=== PATIENT | male | born 1935 | race Caucasian/White ===

== ENCOUNTER 2016-06-15 23:24 | Emergency (ER) | payer MEDICARE, OTHER ==
[2016-06-16 04:19] LABS: ABSOLUTE BASOPHILS # (AUTO) 0.1 10^3/uL (0.0-0.2); ABSOLUTE EOSINOPHILS # (AUTO) 0.1 10^3/uL (0.0-0.6); ABSOLUTE LYMPHOCYTES (AUTO) 0.8 10^3/uL (0.5-4.7); ABSOLUTE MONOCYTES (AUTO) 0.6 10^3/uL (0.1-1.4); ABSOLUTE NEUT (AUTO) 6.4 10^3/uL (1.7-8.2); BASOPHILS % (AUTO) 0.7 % (0-2); EOSINOPHILS % (AUTO) 1.1 % (0-6); HEMATOCRIT 47.2 % (37.9-51.0); HEMOGLOBIN 16.1 g/dL (13.5-17.0); HGB HCT DIFFERENCE 1.1; LYMPHOCYTES % (AUTO) 9.8 % (13-45); MEAN CORPUSCULAR HEMOGLOBIN 32.1 pg (27.0-33.4); MEAN CORPUSCULAR VOLUME 94 fl (80-97); RED CELL DISTRIBUTION WIDTH 13.6 % (11.5-14.0); SEGMENTED NEUTROPHILS % (AUTO) 80.4 % (42-78)
[2016-06-16 04:27] LABS: PROTHROMBIN TIME 14.2 SEC (11.4-15.4)
[2016-06-16 04:28] LABS: PARTIAL THROMBOPLASTIN TIME 30.3 SEC (23.5-35.8)
--- NOTE | 2016-06-16 05:44 | ER Document Report ---
HPI - HPI Patient complains to provider of: bleeding gums Onset: Just prior to arrival Onset/Duration: Sudden Quality of pain: No pain Pain Level: Denies Context: Patient presents to the emergency department with complaints of bleeding gums. Patient reports that he had a tooth extracted yesterday at 11:00. He reports he took his eliquis at 1800 last night and the area started bleeding. He reports he only ate oats, he denies trauma. He denies other symptoms such as fever vomiting diarrhea. He reports he does not smoke. He denies feeling weak or dizzy. Associated Symptoms: None Exacerbated by: Denies Relieved by: Denies Similar symptoms previously: No Recently seen / treated by doctor: Yes - dentist - REPRODUCTIVE Reproductive: DENIES: : - DERM Skin Color: Normal Past Medical History - General Information source: Patient - Social History Smoking Status: Former Smoker Cigarette use (# per day): No Frequency of alcohol use: Occasional Drug Abuse: None Lives with: Family Family History: None Patient has suicidal ideation: No Patient has homicidal ideation: No - Past Medical History Cardiac Medical History: Reports: Hx Atrial Fibrillation, Hx Coronary Artery Disease - high chol , Hx Hypercholesterolemia, Hx Hypertension Denies: Hx Congestive Heart Failure, Hx Heart Attack, Hx Heart Murmur Pulmonary Medical History: Denies: Hx Asthma, Hx Bronchitis, Hx COPD, Hx Pneumonia Neurological Medical History: Denies: Hx Cerebrovascular Accident, Hx Seizures Renal/ Medical History: Denies: Hx Peritoneal Dialysis GI Medical History: Denies: Hx Hepatitis, Hx Hiatal Hernia, Hx Ulcer Musculoskeltal Medical History: Reports Hx Arthritis, Denies Hx Muscle Weakness Infectious Medical History: Denies: Hx Hepatitis Past Surgical History: Reports: Hx Bowel Surgery - bowel resection, Hx Orthopedic Surgery - right foot bone spurs. Denies: Hx Open Heart Surgery, Hx Pacemaker - Immunizations Hx Diphtheria, Pertussis, Tetanus Vaccination: Yes Vertical Provider Document - CONSTITUTIONAL Agree With Documented VS: Yes Exam Limitations: No Limitations General Appearance: WD/WN, No Apparent Distress - INFECTION CONTROL TRAVEL OUTSIDE OF THE [place] IN LAST 30 DAYS: No - HEENT HEENT: Atraumatic, Normocephalic Mouth Diagram: 1 - clot noted - NECK Neck: Normal Inspection, Supple - RESPIRATORY Respiratory: Breath Sounds Normal, No Respiratory Distress O2 Sat by Pulse Oximetry: 97 - CARDIOVASCULAR Cardiovascular: Regular Rate - MUSCULOSKELETAL/EXTREMETIES Musculoskeletal/Extremeties: MAEW, FROM - NEURO Level of Consciousness: Awake, Alert, Appropriate Motor/Sensory: No Motor Deficit - DERM Integumentary: Warm, Dry Course - Re-evaluation Re-evalutation: 06/16/16 07:05 bleeding has slowed, patient instructed to continue to hold pressure and fu with dental now for recheck. - Vital Signs Vital signs: Temp Pulse Resp BP Pulse Ox 56 L 18 164/69 H 97 06/15/16 23:33 06/15/16 23:33 06/15/16 23:33 06/15/16 23:33 - Laboratory Result Diagrams: 06/16/16 04:03 Laboratory results interpreted by me: 06/16/16 04:03 Plt Count 137 L Seg Neutrophils % 80.4 H Lymphocytes % 9.8 L Discharge - Discharge Clinical Impression: bleeding from tooth extraction Condition: Stable Disposition: HOME, SELF-CARE Additional Instructions: *You have been evaluated for bleeding from recent tooth extraction site *Eat soft foods only *Follow up with your dentist this am. *Return to ED for worsening condition, changes, needs Referrals: CATHI BRUNER MD [Primary Care Provider] - Follow up as needed
[2016-06-16 07:39] VITALS: BP 129/94
== END 2016-06-16 07:42 | disposition home or self-care (01) ==
LOC: ER 23:24
DX: K91.840 Postprocedural hemorrhage of a digestive system organ or structure following a digestive system procedure (principal); Y83.6 Removal of other organ (partial) (total) as the cause of abnormal reaction of the patient, or of later complication, without mention of misadventure at the time of the procedure; I48.91 Unspecified atrial fibrillation; I25.10 Atherosclerotic heart disease of native coronary artery without angina pectoris; I10 Essential (primary) hypertension; Z79.01 Long term (current) use of anticoagulants; Z87.891 Personal history of nicotine dependence
CPT/HCPCS: 36415; 85025; 85610; 85730; 99283

== ENCOUNTER 2018-04-21 06:42 | Day surgery (SDC) | payer MEDICARE, OTHER ==
[~2018-04-21 06:42] MED LIST: KETOROLAC TROMETHAMINE 0.45% 4 DROP/0.4 ML DROPERETTE OD PRN
[2018-04-21] MEDS: BESIFLOXACIN HCL 0.6% OPH SUSP 5 ML BOTTLE OD PRN ×4 (07:02→08:19)
[2018-04-21] MEDS: TROPICAMIDE 1% OPH SOLN 3 ML OD PRN ×3 (07:02→07:25)
[2018-04-21] MEDS: TETRACAINE HCL 0.5% OPH SOLN 4 ML OD PRN ×3 (07:02→07:49)
[2018-04-21] MEDS: CYCLOPENTOLATE 0.2%/PHENYLEPHRINE 1% OPH SOLN 2 ML OD PRN ×3 (07:02→07:25)
[2018-04-21] MEDS ORDERED: LIDOCAINE 1% INJ-PF (10 MG/ML) 30 ML SDV ONE (07:21)
[2018-04-21] MEDS ORDERED: EPINEPHRINE INJ/PF 1 MG/1 ML AMPULE ONE (07:21)
[2018-04-21] MEDS ORDERED: CHONDR SU A NA/HYALUR INTRAOC KIT (SURGICARE) ONE (07:21)
[2018-04-21] MEDS ORDERED: LIDOCAINE 1%/PHENYLEPHRINE 1.5% 1 ML VIAL ONE (07:37)
[2018-04-21] MEDS ORDERED: MIDAZOLAM 2 MG/2 ML INJ ONE ×2 (07:40→07:53)
[2018-04-21] MEDS ORDERED: FENTANYL CITRATE INJ/PF 100 MCG/2 ML AMPUL ONE (07:40)
--- NOTE | 2018-04-22 01:33 | [facility] DISCHARGE SUMMARY E ---
[facility] Discharge Summary NAME: TESS JOHNSON AGE: 82Y ADMITTED: 04/21/2018 DISCHARGED: 04/21/2018 HOSPITAL COURSE: This is an 82-year-old male who underwent cataract extraction complex of the right eye with use of a Malyugin ring. DIAGNOSIS: 1. CATARACT, RIGHT EYE. 2. PUPIL MIOSIS REQUIRING A MALYUGIN RING DILATING LESS THAN 4 MM. He underwent surgery because he was having difficulty seeing the golf ball as well as headlights at night causing it difficult to drive. DISCHARGE INSTRUCTIONS: He should be on a regular diet. No bending at the waist, no heavy lifting. He should use PROLENSA, Besivance, and Durezol at 3 p.m. and 8 p.m. and sleep with a rigid shield. I will see him for his 1 day postoperative tomorrow. DICTATING PHYSICIAN: GRAHAM NICOLE M.D. [id number] PHY#: [id number] ID: [id number] JOB#: [id number] ACCT: [id number] cc:GRAHAM NICOLE M.D. >
--- NOTE | 2018-04-22 01:33 | [facility] OPERATIVE REPORT E ---
[facility] Operative Report NAME: TESS JOHNSON AGE: 82Y DATE OF SURGERY: 04/21/2018 ROOM: PREOPERATIVE DIAGNOSES: 1. CATARACT RIGHT EYE. 2. PUPIL MIOSIS, RIGHT EYE. POSTOPERATIVE DIAGNOSES: 1. CATARACT RIGHT EYE. 2. PUPIL MIOSIS, RIGHT EYE. OPERATION: Complex cataract extraction with the use of a Malyugin ring due to pupillary miosis where the pupil measured to be less than 4 mm. SURGEON: GRAHAM NICOLE M.D. ANESTHESIA: TOPICAL. COMPLICATIONS: None. ESTIMATED BLOOD LOSS: None. PROCEDURE: After obtaining appropriate consent, the patient right eye was prepped and draped in sterile fashion as well as the surgeon in a sterile manner, and the cataract surgery was started. First, the paracentesis blade was used to make a small side-port incision. Viscoelastic was used to inflate the anterior chamber. Next a 2.4 mm incision was made using a 2.4 mm keratome. At this point, the pupil was less than 4.5 mm and was very miotic. In order to complete the capsulorhexis, a Malyugin ring was inserted and found to be in excellent position to help stabilize the pupil. Following this, a continuous capsulorhexis was made using a cystitome and Utrata forceps. Following this, hydrodissection was carried out to make the lens fully loose and mobile, and it was rotated 90 degrees. Following this, a divide and conquer technique was used to phacoemulsify the lens with a CDE of approximately 11.05. The remaining cortex was removed with irrigation/aspiration. Provisc was instilled into the capsular bag to inflate the bag. A SN60WF lens of 15.5 diopters was placed. The remaining viscoelastic material was removed with irrigation/aspiration. After this the Malyugin ring was removed. Following this, the incision was found to be watertight. Besivance was instilled into the eye and a protective shield was placed over the eye. The patient returned to the postoperative recovery in stable condition. This was a complex case due to the fact that the Malyugin ring was used due to poor pupillary dilation of less than or equal to 4 mm. Prior to making the capsulorhexis a Malyugin ring was inserted due to poor pupillary dilatation, this was removed at the end of the case. DICTATING PHYSICIAN: GRAHAM NICOLE M.D. [id number] PHY#: [id number] ID: [id number] JOB#: [id number] ACCT: [id number] cc:GRAHAM NICOLE M.D. >
== END 2018-04-21 09:00 | disposition home or self-care (01) ==
LOC: SC 06:42
PROVIDERS: ATTEND Internal Medicine
DX: H25.811 Combined forms of age-related cataract, right eye (principal); H57.03 Miosis; I10 Essential (primary) hypertension; I48.91 Unspecified atrial fibrillation; Z79.899 Other long term (current) drug therapy; Z87.891 Personal history of nicotine dependence
CPT/HCPCS: 66982; V2632; J2250; J3490 ×2; A9270; J0171; J3010; J2370; 142

== ENCOUNTER 2018-05-12 10:28 | Day surgery (SDC) | payer MEDICARE, OTHER ==
[~2018-05-12 10:28] MED LIST changes: +CHONDR SU A NA/HYALUR INTRAOC KIT (SURGICARE) ONE; +DORZOLAMIDE HCL 2%/TIMOLOL MALEAT 0.5% OPH SOLN 10 ML OS PRN; +EPINEPHRINE INJ/PF 1 MG/1 ML AMPULE ONE; -KETOROLAC TROMETHAMINE 0.45% 4 DROP/0.4 ML DROPERETTE OD PRN; +KETOROLAC TROMETHAMINE 0.45% 4 DROP/0.4 ML DROPERETTE OS PRN; +LIDOCAINE 1%/PHENYLEPHRINE 1.5% 1 ML VIAL ONE
[2018-05-12] MEDS: TETRACAINE HCL 0.5% OPH SOLN 4 ML OS PRN ×3 (11:37→12:24)
[2018-05-12] MEDS: TROPICAMIDE 1% OPH SOLN 3 ML OS PRN ×3 (11:38→12:02)
[2018-05-12] MEDS: CYCLOPENTOLATE 0.2%/PHENYLEPHRINE 1% OPH SOLN 2 ML OS PRN ×3 (11:38→12:02)
[2018-05-12] MEDS: BESIFLOXACIN HCL 0.6% OPH SUSP 5 ML BOTTLE OS PRN ×4 (11:39→12:42)
[2018-05-12] MEDS ORDERED: MIDAZOLAM 2 MG/2 ML INJ ONE ×2 (11:58→12:20)
--- NOTE | 2018-05-12 20:53 | [facility] DISCHARGE SUMMARY E ---
[facility] Discharge Summary NAME: TESS JOHNSON AGE: 82Y ADMITTED: 05/12/2018 DISCHARGED: 05/12/2018 HOSPITAL COURSE: This is a 82-year-old male who underwent cataract extraction of the left eye. DIAGNOSIS: 1. CATARACT OF THE LEFT EYE. 2. PUPIL MIOSIS OF THE LEFT EYE. He underwent surgery because he was having difficulty driving at night secondary to glare from headlights. DISCHARGE INSTRUCTIONS: He should be on a regular diet. No bending at his waist, no heavy lifting. He should use his Besivance, PROLENSA, and Durezol at 3 p.m. and 8 p.m. and sleep with a rigid shield. I will see him for his 1 day postoperative tomorrow. DICTATING PHYSICIAN: GRAHAM NICOLE M.D. [id number] PHY#: [id number] ID: [id number] JOB#: [id number] ACCT: [id number] cc:GRAHAM NICOLE M.D. >
--- NOTE | 2018-05-12 20:53 | [facility] OPERATIVE REPORT E ---
[facility] Operative Report NAME: TESS JOHNSON AGE: 82Y DATE OF SURGERY: 05/12/2018 ROOM: PREOPERATIVE DIAGNOSES: 1. CATARACT OF THE LEFT EYE. 2. PUPIL MIOSIS OF THE LEFT EYE. POSTOPERATIVE DIAGNOSES: 1. CATARACT OF THE LEFT EYE. 2. PUPIL MIOSIS OF THE LEFT EYE. OPERATION: Complex cataract extraction with the use of a Malyugin ring due to pupillary miosis where the pupil measured to be less than 4 mm. SURGEON: GRAHAM NICOLE M.D. ANESTHESIA: TOPICAL. COMPLICATIONS: None. ESTIMATED BLOOD LOSS: None. PROCEDURE: After obtaining appropriate consent, the patient left eye was prepped and draped in sterile fashion as well as the surgeon in a sterile manner, and the cataract surgery was started. First, the paracentesis blade was used to make a small side-port incision. Viscoelastic was used to inflate the anterior chamber. Next a 2.4 mm incision was made using a 2.4 mm keratome. At this point, the pupil was less than 4.5 mm and was very miotic. In order to complete the capsulorhexis, a Malyugin ring was inserted and found to be in excellent position to help stabilize the pupil. Following this, a continuous capsulorhexis was made using a cystitome and Utrata forceps. Following this, hydrodissection was carried out to make the lens fully loose and mobile, and it was rotated 90 degrees. Following this, a divide and conquer technique was used to phacoemulsify the lens with a CDE of approximately 5.81. The remaining cortex was removed with irrigation/aspiration. Provisc was instilled into the capsular bag to inflate the bag. A SN60WF lens of 15.5 diopters was placed. The remaining viscoelastic material was removed with irrigation/aspiration. After this the Malyugin ring was removed. Following this, the incision was found to be watertight. Besivance was instilled into the eye and a protective shield was placed over the eye. The patient returned to the postoperative recovery in stable condition. This was a complex case due to the fact that the Malyugin ring was used due to poor pupillary dilation of less than or equal to 4 mm. Prior to making the capsulorhexis a Malyugin ring was inserted due to poor pupillary dilation of less than 4 mm. DICTATING PHYSICIAN: GRAHAM NICOLE M.D. [id number] PHY#: [id number] ID: [id number] JOB#: [id number] ACCT: [id number] cc:GRAHAM NICOLE M.D. >
== END 2018-05-12 13:30 | disposition home or self-care (01) ==
LOC: SC 10:28
PROVIDERS: ATTEND Internal Medicine
DX: H25.812 Combined forms of age-related cataract, left eye (principal); H57.03 Miosis; Z96.1 Presence of intraocular lens; I10 Essential (primary) hypertension
CPT/HCPCS: 66984; V2632; J2250; J3490 ×2; A9270; J0171; J2370; 142